=== PATIENT | female | born 1990 | race Hispanic/Latino ===

== ENCOUNTER 2021-02-03 20:53 | Inpatient (IN) | payer BC ==
[2021-02-03] MEDS ORDERED: Dexamethasone 4 mg/ml Vial ONE (21:34)
[2021-02-03] MEDS ORDERED: Acetaminophen 500 MG TAB ONE (21:34)
[2021-02-03 22:10] LABS: #Monocytes 0.3 10x3/uL (0.0-1.1); #Neutrophils 1.7 10x3/uL (1.5-8.4); %Basophils 0.3 % (0.0-2.0); %Lymphocytes 39.8 % (18.0-47.0); %Monocytes 8.1 % (0.0-10.0); %Neutrophils 51.5 % (40.0-75.0); Hemoglobin 9.8 g/dL (12.0-15.5); Mean Corpuscular HGB CONC 27.5 g/dL (32.0-36.0); Mean Corpuscular Hemoglobin 17.1 pg (27.0-33.0); Mean Corpuscular Volume 62.3 fl (81.6-98.3); Platelet Count 176 10x3/uL (150-450); RBC Distribution Width 20.7 % (11.5-14.5); Red Blood Cell (RBC) Count 5.73 10x6/uL (3.90-5.03); White Blood Cell (WBC) Count 3.2 10x3/uL (3.5-10.5)
[2021-02-03 22:17] LABS: BHCG - Serum Negative (NEGATIVE); Pregs Control Background? CLEAR/WHITE (CLR/WHITE); Pregs Control Bar Appear? YES (CONTROL BAR)
[2021-02-03 22:23] LABS: ALT (SGPT) 43 U/L (8-55); AST (SGOT) 45 U/L (5-34); Albumin 3.8 g/dL (3.5-5.0); Alkaline Phosphatase 59 U/L (40-110); Anion Gap 11 mmol/L (10-20); BUN (Urea Nitrogen) 8 mg/dL (7.0-18.7); Bilirubin, Total 0.5 mg/dL (0.2-1.2); Calc. Creatinine Clearance 0 mL/min (70-130); Carbon Dioxide 28 mmol/L (22-29); Chloride 102 mmol/L (98-107); Globulin 3.9 g/dL (2.4-3.5); Glucose 93 mg/dL (70-105); Potassium 3.9 mmol/L (3.5-5.1); Protein, Total 7.7 g/dL (6.0-8.3); Sodium 137 mmol/L (136-145)
[2021-02-03 22:27] LABS: Anisocytosis MARKED = >30 cells (100X) (0-5/hpf); Elliptocytes SLIGHT = 2-5 cells (100X) (0-1/hpf); Hypochromia MODERATE=16-30 cells (100X) (0-5/hpf); Microcytosis MARKED = >30 cells (100X) (0-5/hpf); Poikilocytosis MODERATE=16-30 cells (100X) (0-5/hpf)
[2021-02-03 22:29] LABS: Large Platelets SLIGHT; Platelet Morphology Comment Appears Adequate
[2021-02-04] MEDS ORDERED: Milk Of Magnesia 30 ML UDCUP PO PRN (00:40)
[2021-02-04] MEDS ORDERED: Ondansetron PF 4 MG/2 ML Vial IVP PRN (00:40)
[2021-02-04] MEDS ORDERED: Ondansetron ODT 4 MG TAB PO PRN (00:40)
[2021-02-04] MEDS ORDERED: Acetaminophen 325 MG TAB PO PRN (00:40)
[2021-02-04 01:14] VITALS: BMI 55.6
[2021-02-04] MEDS ORDERED: Famotidine/PF 20 mg/2ml Vial SLOW IVP SCH (02:00)
[2021-02-04] MEDS: Dexamethasone 20 MG/5 ML VIAL SLOW IVP SCH (08:19)
[2021-02-04] MEDS: Zinc Sulfate 220 MG CAP PO SCH (08:20)
[2021-02-04] MEDS: Ascorbic Acid 500 mg Chewable Tablet PO SCH (08:20)
[2021-02-04] MEDS: Enoxaparin Sodium 40 MG/0.4 ML SYRINGE SC SCH (08:21)
[2021-02-04] MEDS: Cholecalciferol 1,000 UNITS (25 MCG) TAB PO SCH (08:21)
[2021-02-04 08:28] LABS: Hemoglobin 10.5 g/dL (12.0-15.5); Mean Corpuscular HGB CONC 26.8 g/dL (32.0-36.0); Mean Corpuscular Hemoglobin 16.8 pg (27.0-33.0); Mean Corpuscular Volume 62.7 fl (81.6-98.3); Platelet Count 191 10x3/uL (150-450); RBC Distribution Width 20.9 % (11.5-14.5); Red Blood Cell (RBC) Count 6.25 10x6/uL (3.90-5.03); White Blood Cell (WBC) Count 2.1 10x3/uL (3.5-10.5)
[2021-02-04 08:44] LABS: Anion Gap 11 mmol/L (10-20); BUN (Urea Nitrogen) 9 mg/dL (7.0-18.7); Calc. Creatinine Clearance 266 mL/min (70-130); Calcium 8.4 mg/dL (7.8-10.44); Carbon Dioxide 27 mmol/L (22-29); Chloride 105 mmol/L (98-107); Glucose 138 mg/dL (70-105); Iron 14 ug/dL (50-170); Iron Binding Capacity, Total 414 mcg/dL (265-497); Magnesium 2.3 mg/dL (1.6-2.6); Potassium 4.2 mmol/L (3.5-5.1); Sodium 139 mmol/L (136-145)
[2021-02-04 09:21] LABS: MDiff Complete? YES
[2021-02-04 09:27] LABS: Monocytes 4 % (0-10); Neutrophil 58 % (42-75)
[2021-02-04 09:30] LABS: Band 15 % (5-11); Lymphocytes 23 % (21-51)
[2021-02-04 09:32] LABS: Anisocytosis SLIGHT = 6-15 cells (100X) (0-5/hpf); Hypochromia MODERATE=16-30 cells (100X) (0-5/hpf); Microcytosis MODERATE=15-30 cells (100X) (0-5/hpf)
[2021-02-04 09:33] LABS: Ovalocytes SLIGHT = 2-5 cells (100X) (0-1/hpf); Platelet Morphology Comment Appears Adequate; Polychromasia SLIGHT = 2-3 cells (100X) (0-2/hpf)
[2021-02-04 09:52] LABS: Ferritin 20.09 ng/mL (10-291)
[2021-02-04] MEDS ORDERED: REMDESIVIR (EUA) 200 MG in Sodium Chloride 0.9% 250 ML 210 ML IV SCH (12:00)
[2021-02-04] MEDS: Famotidine/PF 20 mg/2ml Vial SLOW IVP SCH (20:24)
[2021-02-05 06:20] LABS: ALT (SGPT) 34 U/L (8-55); AST (SGOT) 29 U/L (5-34); Albumin 3.5 g/dL (3.5-5.0); Alkaline Phosphatase 52 U/L (40-110); Bilirubin, Direct 0.3 mg/dL (0.1-0.3); Bilirubin, Total 0.4 mg/dL (0.2-1.2); Protein, Total 7.1 g/dL (6.0-8.3)
[2021-02-05] MEDS: Dexamethasone 20 MG/5 ML VIAL SLOW IVP SCH (08:35)
[2021-02-05] MEDS: Famotidine/PF 20 mg/2ml Vial SLOW IVP SCH ×2 (08:36→20:30)
[2021-02-05] MEDS: Zinc Sulfate 220 MG CAP PO SCH (08:36)
[2021-02-05] MEDS: Enoxaparin Sodium 40 MG/0.4 ML SYRINGE SC SCH (08:36)
[2021-02-05] MEDS: Ascorbic Acid 500 mg Chewable Tablet PO SCH (08:37)
[2021-02-05] MEDS: Cholecalciferol 1,000 UNITS (25 MCG) TAB PO SCH (08:37)
[2021-02-05] MEDS ORDERED: Iron, Sodium Ferric Gluconate 125 MG in Sodium Chloride 0.9% 100 ML IVPB SCH (12:00)
[2021-02-05] MEDS: REMDESIVIR (EUA) 100 MG in Sodium Chloride 0.9% 250 ML 230 ML IV SCH (12:19)
[2021-02-06 06:59] LABS: ALT (SGPT) 37 U/L (8-55); AST (SGOT) 32 U/L (5-34); Albumin 3.4 g/dL (3.5-5.0); Alkaline Phosphatase 48 U/L (40-110); Bilirubin, Direct 0.4 mg/dL (0.1-0.3); Bilirubin, Total 0.6 mg/dL (0.2-1.2); Protein, Total 6.9 g/dL (6.0-8.3)
[2021-02-06] MEDS: Dexamethasone 20 MG/5 ML VIAL SLOW IVP SCH (08:45)
[2021-02-06] MEDS: Famotidine/PF 20 mg/2ml Vial SLOW IVP SCH ×2 (08:45→21:20)
[2021-02-06] MEDS: Cholecalciferol 1,000 UNITS (25 MCG) TAB PO SCH (08:45)
[2021-02-06] MEDS: Enoxaparin Sodium 40 MG/0.4 ML SYRINGE SC SCH (08:45)
[2021-02-06] MEDS: Ascorbic Acid 500 mg Chewable Tablet PO SCH (08:45)
[2021-02-06] MEDS: Zinc Sulfate 220 MG CAP PO SCH (08:45)
[2021-02-06] MEDS: REMDESIVIR (EUA) 100 MG in Sodium Chloride 0.9% 250 ML 230 ML IV SCH (12:15)
[2021-02-06] MEDS: Iron, Sodium Ferric Gluconate 125 MG in Sodium Chloride 0.9% 100 ML IVPB SCH (19:02)
[2021-02-07 07:46] LABS: ALT (SGPT) 60 U/L (8-55); AST (SGOT) 45 U/L (5-34); Albumin 3.4 g/dL (3.5-5.0); Alkaline Phosphatase 49 U/L (40-110); Anion Gap 13 mmol/L (10-20); BUN (Urea Nitrogen) 10 mg/dL (7.0-18.7); Bilirubin, Direct 0.4 mg/dL (0.1-0.3); Bilirubin, Total 0.6 mg/dL (0.2-1.2); Calc. Creatinine Clearance 266 mL/min (70-130); Calcium 8.4 mg/dL (7.8-10.44); Carbon Dioxide 27 mmol/L (22-29); Chloride 106 mmol/L (98-107); Globulin 3.6 g/dL (2.4-3.5); Glucose 93 mg/dL (70-105); Sodium 142 mmol/L (136-145)
[2021-02-07] MEDS: Enoxaparin Sodium 40 MG/0.4 ML SYRINGE SC SCH (08:18)
[2021-02-07] MEDS: Zinc Sulfate 220 MG CAP PO SCH (08:19)
[2021-02-07] MEDS: Ascorbic Acid 500 mg Chewable Tablet PO SCH (08:19)
[2021-02-07] MEDS: Dexamethasone 20 MG/5 ML VIAL SLOW IVP SCH (08:19)
[2021-02-07] MEDS: Cholecalciferol 1,000 UNITS (25 MCG) TAB PO SCH (08:19)
[2021-02-07] MEDS: Famotidine/PF 20 mg/2ml Vial SLOW IVP SCH ×2 (08:20→21:02)
[2021-02-07 08:58] LABS: #Monocytes 0.5 10x3/uL (0.0-1.1); #Neutrophils 1.4 10x3/uL (1.5-8.4); %Lymphocytes 41.8 % (18.0-47.0); %Monocytes 14.2 % (0.0-10.0); %Neutrophils 43.7 % (40.0-75.0); Hemoglobin 9.6 g/dL (12.0-15.5); Mean Corpuscular Volume 62.9 fl (81.6-98.3); Platelet Count 211 10x3/uL (150-450); RBC Distribution Width 20.4 % (11.5-14.5); Red Blood Cell (RBC) Count 5.66 10x6/uL (3.90-5.03); White Blood Cell (WBC) Count 3.2 10x3/uL (3.5-10.5)
[2021-02-07] MEDS: REMDESIVIR (EUA) 100 MG in Sodium Chloride 0.9% 250 ML 230 ML IV SCH (11:30)
[2021-02-07] MEDS: Iron, Sodium Ferric Gluconate 125 MG in Sodium Chloride 0.9% 100 ML IVPB SCH (14:30)
[2021-02-07 15:55] LABS: Hypochromia MODERATE=16-30 cells (100X) (0-5/hpf); Platelet Morphology Comment Appears Adequate
[2021-02-07 15:57] LABS: Anisocytosis MODERATE=16-30 cells (100X) (0-5/hpf); Microcytosis MODERATE=15-30 cells (100X) (0-5/hpf)
[2021-02-08 05:16] LABS: #Monocytes 0.4 10x3/uL (0.0-1.1); #Neutrophils 2.1 10x3/uL (1.5-8.4); %Basophils 0.2 % (0.0-2.0); %Lymphocytes 41.3 % (18.0-47.0); %Monocytes 9.5 % (0.0-10.0); %Neutrophils 48.5 % (40.0-75.0); Hemoglobin 9.8 g/dL (12.0-15.5); Mean Corpuscular HGB CONC 27.6 g/dL (32.0-36.0); Mean Corpuscular Hemoglobin 17.4 pg (27.0-33.0); Mean Corpuscular Volume 63.1 fl (81.6-98.3); Platelet Count 217 10x3/uL (150-450); RBC Distribution Width 21.7 % (11.5-14.5); Red Blood Cell (RBC) Count 5.63 10x6/uL (3.90-5.03); White Blood Cell (WBC) Count 4.4 10x3/uL (3.5-10.5)
[2021-02-08 05:31] LABS: ALT (SGPT) 78 U/L (8-55); AST (SGOT) 47 U/L (5-34); Albumin 3.3 g/dL (3.5-5.0); Alkaline Phosphatase 54 U/L (40-110); Anion Gap 15 mmol/L (10-20); BUN (Urea Nitrogen) 9 mg/dL (7.0-18.7); Bilirubin, Direct 0.4 mg/dL (0.1-0.3); Bilirubin, Total 0.6 mg/dL (0.2-1.2); Calc. Creatinine Clearance 266 mL/min (70-130); Calcium 8.4 mg/dL (7.8-10.44); Carbon Dioxide 25 mmol/L (22-29); Chloride 106 mmol/L (98-107); Globulin 3.5 g/dL (2.4-3.5); Glucose 84 mg/dL (70-105); Potassium 3.5 mmol/L (3.5-5.1); Protein, Total 6.8 g/dL (6.0-8.3); Sodium 142 mmol/L (136-145)
[2021-02-08] MEDS: Cholecalciferol 1,000 UNITS (25 MCG) TAB PO SCH (07:31)
[2021-02-08] MEDS: Famotidine/PF 20 mg/2ml Vial SLOW IVP SCH (07:31)
[2021-02-08] MEDS: Zinc Sulfate 220 MG CAP PO SCH (07:31)
[2021-02-08] MEDS: Enoxaparin Sodium 40 MG/0.4 ML SYRINGE SC SCH (07:31)
[2021-02-08] MEDS: Dexamethasone 20 MG/5 ML VIAL SLOW IVP SCH (07:31)
[2021-02-08] MEDS: Ascorbic Acid 500 mg Chewable Tablet PO SCH (07:31)
[2021-02-08] MEDS: REMDESIVIR (EUA) 100 MG in Sodium Chloride 0.9% 250 ML 230 ML IV SCH (12:31)
[2021-02-08 13:08] VITALS: BP 129/90; TEMP 98
[2021-02-08] MEDS: Iron, Sodium Ferric Gluconate 125 MG in Sodium Chloride 0.9% 100 ML IVPB SCH (13:08)
== END 2021-02-08 14:42 | disposition home or self-care (01) | DRG 177 ==
LOC: CSHERS 20:53 → CSHTELE 02-04
PROVIDERS: ADMIT Family Medicine; ATTEND Family Medicine
PROC: 8E0ZXY6 Isolation (ICD-10-PCS; principal; 2021-02-04)
DX: U07.1 COVID-19 (principal); J12.82 Pneumonia due to coronavirus disease 2019; J96.01 Acute respiratory failure with hypoxia; Z68.43 Body mass index [BMI] 50.0-59.9, adult; D50.9 Iron deficiency anemia, unspecified; Z87.74 Personal history of (corrected) congenital malformations of heart and circulatory system; E66.01 Morbid (severe) obesity due to excess calories
CPT/HCPCS: 36415; 71045; 80048; 80053; 80076; 82607; 82728; 82746; 83540; 83550; 83735; 84703; 85025; 85379; 93005; 93010; 94760; 96374; J1100; J1650; J2916; J3490; J7050; S0028

== ENCOUNTER 2024-05-21 07:02 | Emergency (ER) | payer OTHER, SELFPAY ==
[2024-05-21] MEDS ORDERED: Ondansetron ODT 4 MG TAB ONE (07:34)
[2024-05-21] MEDS ORDERED: Metoclopramide HCl 10 MG (2 mL) VIAL ONE (08:13)
[2024-05-21] MEDS ORDERED: Dicyclomine 20 MG TAB ONE (08:14)
[2024-05-21 08:17] LABS: Bilirubin Neg (Negative); Blood, Urine Negative (Negative); Clarity Clear (Clear); Glucose, Urine (Dipstick) Normal (Negative); Ketone, Urine Negative (Negative); Leukocyte Negative (Negative); Nitrite Negative (Negative); Pregnancy Test - Urine (BHCG) Negative (Negative); Protein, Urine (Dipstick) Negative (Neg-Trace); Urobilinogen Normal mg/dL (Less than 2)
[2024-05-21 08:18] LABS: Pregu Control Background? CLEAR/WHITE (CLR/WHITE); Pregu Control Bar Appear? YES (CONTROL BAR)
[2024-05-21 08:45] LABS: CAUTI Indications for Culture Pelvic or flank pain; RBC/HPF 0-3 HPF (0-3); WBC/HPF 0-3 HPF (0-3)
[2024-05-21 08:58] LABS: Bacteria/HPF 1+ HPF (None Seen); Urine Culture Reflex No No
== END 2024-05-21 08:55 | disposition home or self-care (01) ==
LOC: CSHERS 07:02
DX: A08.4 Viral intestinal infection, unspecified (principal)
CPT/HCPCS: 81001; 81025; 96361; 96374; J2765; Q0162

== ENCOUNTER 2024-09-14 05:29 | Emergency (ER) | payer OTHER | END 2024-09-14 06:20 | disposition home or self-care (01) | LOC: CSHERS 05:29 | DX: J18.9 Pneumonia, unspecified organism (principal) | CPT/HCPCS: 99282 ==